=== PATIENT | female | born 1960 | race Caucasian/White ===

== ENCOUNTER → 2016-11-30 | Outpatient (CLI) | payer BC ==
[~2016-11-30] MED LIST: ASPEC325 PO; CALC-323 PO; FERR28TA; FLV1 PO; FRRG PO; HYDR-3419 PO; METH2.5T PO; PEDICHW34 PO; PRED-301 PO; PRED10TA PO; SENNTAB23; [UNRECOGNIZED DRUG - OTHER]
[2016-11-30 12:59] LABS: SYNOVIAL FLUID APPEARANCE CLOUDY; SYNOVIAL FLUID COLOR PALE YELLOW
== END | disposition home or self-care (01) ==
LOC: C.LABSPEC 11:13
PROVIDERS: ATTEND Orthopaedic Surgery Sports Medicine
DX: T84.84XA Pain due to internal orthopedic prosthetic devices, implants and grafts, initial encounter (principal); Z96.659 Presence of unspecified artificial knee joint; Y83.1 Surgical operation with implant of artificial internal device as the cause of abnormal reaction of the patient, or of later complication, without mention of misadventure at the time of the procedure

== ENCOUNTER 2016-12-25 11:03 | Inpatient (IN) | payer BC ==
[2016-11-30 10:05] VITALS: BMI 46.0
--- NOTE | 2016-11-30 10:41 | PAT Medication Instructions ---
Service Date November 30, 2016. Current Home Medication List Calcium Citrate-Vitamin D (Citracal Maximum), 2 TABS PO QAM Ferrous Gluconate (Iron), Unknown Dose Folic Acid (Folvite *), 1 MG PO QAM Hydrocodon/Acetaminophen 5MG/300MG (Vicodin (5MG/300MG)), 1 TAB PO Q4H PRN for Pain Methotrexate (Methotrexate), 6 TAB PO qfriday am Pediatric Multiple Vitamin W/ (Gummi Bear Multivitamin/M), 2 TAB PO QAM Prednisone (Prednisone), 2 TAB PO QAM [fosomax], Unknown Dose Medication Instructions For Your Scheduled Surgery - Check with surgeon/cook camp for instructions: Methotrexate (Methotrexate), 6 TAB PO qfriday am - Hold the following medications the morning of surgery: Pediatric Multiple Vitamin W/ (Gummi Bear Multivitamin/M), 2 TAB PO QAM Ferrous Gluconate (Iron), Unknown Dose Folic Acid (Folvite *), 1 MG PO QAM Calcium Citrate-Vitamin D (Citracal Maximum), 2 TABS PO QAM [fosomax], Unknown Dose - Take the following medications the morning of surgery with a sip of water: Prednisone (Prednisone), 2 TAB PO QAM Hydrocodon/Acetaminophen 5MG/300MG (Vicodin (5MG/300MG)), 1 TAB PO Q4H PRN for Pain (okay to take up to 4 hours prior to surgery if needed) - Take the following medications as scheduled the night before surgery: Hydrocodon/Acetaminophen 5MG/300MG (Vicodin (5MG/300MG)), 1 TAB PO Q4H PRN for Pain (if needed) If you have any questions please call us at [phone] (Neha Hassan PA-C) or [phone] or [phone]
--- NOTE | 2016-11-30 11:21 | DIAGNOSTIC IMAGING REPORT ---
CHEST PREADMISSION(PA/LAT) CLINICAL HISTORY: Preoperative chest COMPARISON STUDY: 03/21/2015 FINDINGS: The heart is at the upper limits of normal in size. There is no evidence of focal pulmonary consolidation. There is no evidence of failure. No pleural effusions are visualized.[ Indistinctness of the left cardiophrenic angle is likely secondary to a fat pad. IMPRESSION: No active disease in the chest. Electronically signed by: Toni Anaya M.D. 11/30/2016 11:19 AM Dictated Date/Time: 11/30/2016 11:19 AM
--- NOTE | 2016-11-30 11:43 | DIAGNOSTIC IMAGING REPORT ---
LATERAL CERVICAL SPINE RADIOGRAPHS IN THE NEUTRAL, FLEXION AND EXTENSION POSITIONS CLINICAL HISTORY: Preoperative evaluation. Rheumatoid arthritis. COMPARISON STUDY: Cervical spine radiographs January 25, 2015. FINDINGS: There is no evidence of instability at the atlantoaxial articulation during flexion or extension. Mild to moderate multilevel degenerative changes are most pronounced at C5-C6 and C6-C7. There is no fracture. Prevertebral soft tissues are unremarkable. Degenerative changes at the C1-C2 articulation are noted. IMPRESSION: 1. No radiographic evidence of atlantoaxial instability. 2. Moderate degenerative disc disease at C5-C6 and C6-C7. Electronically signed by: Pascual Alexandra M.D. 11/30/2016 11:42 AM Dictated Date/Time: 11/30/2016 11:39 AM
[2016-11-30 12:16] LABS: BASO % 0.4 %; BASO ABS # 0.03 K/uL (0-0.2); COMPLETE YES; EOS % 0.4 %; HEMATOCRIT 38.4 % (37-47); IG% 0.7 %; LYMPH % 12.8 %; LYMPH ABS # 0.86 K/uL (1.2-3.4); MEAN CELL VOLUME 98.7 fL (80-100); MEAN CORPUSCULAR HEMOGLOBIN 30.3 pg (25-34); MEAN CORPUSCULAR HGB CONC 30.7 g/dl (32-36); MEAN PLATELET VOLUME 9.2 fL (7.4-10.4); MONO % 5.8 %; NEUT % 79.9 %; PLATELET COUNT 354 K/uL (130-400); RED BLOOD COUNT 3.89 M/uL (4.2-5.4); WHITE BLOOD COUNT 6.74 K/uL (4.8-10.8)
[2016-11-30 12:31] LABS: C-REACTIVE PROTEIN 0.77 mg/dl (0-0.29); CREATININE 0.81 mg/dl (0.60-1.20); POTASSIUM 4.3 mmol/L (3.5-5.1)
[2016-11-30 12:35] LABS: INR 0.9 (0.9-1.1); PARTIAL THROMBOPLASTIN RATIO 0.9
--- NOTE | 2016-12-20 19:17 | HISTORY & PHYSICAL EXAMINATION ---
DATE OF ADMISSION: 12/25/2016 CHIEF COMPLAINT: Persistent right leg pain and discomfort status post knee replacement surgery. HISTORY OF PRESENT ILLNESS: The patient is a 56-year-old fairly severe rheumatoid patient who has a complex history related to her knees. She had her right knee replaced back in 09/12/2010. She did quite well for quite some time. She has had multiple falls over the years and did develop some problems with her left knee. It was thought that she had infection and she went and had a resection arthroplasty followed by antibiotic spacer placed on 02/19/2015 and then subsequently revised in April 2015. She has done well from this side. She has been doing pretty well since and then had several falls. She had one in January where she injured both of her knees some but she recovered for the most part and then had another fall in April. This seemed to really aggravate her right knee and she has had persistent increasing pain in the right knee since then. X-rays over the past several months have shown loosening of her tibial tray and she now presents for revision. We did an extensive workup for infection. Her sed rate was just minimally elevated at 24 and C-reactive protein at 0.77 consistent with rheumatoid disease. We aspirated her knee and her white cell count was less than 10 with 25% polys. We did send this off a for Synovasure testing which was negative. Culture from both Synovasure as well as from the hospital were no growth. Her femoral component does not look loose. She has been trying to continue to work but having more difficulty. This requires her to stand and she has difficulty mostly grover pain. PAST MEDICAL HISTORY: 1. Longstanding rheumatoid disease affecting multiple joints. 2. Obesity with a BMI of 46.5. PAST SURGICAL HISTORY: Include: 1. Gastric bypass surgery in 2008. 2. Bilateral knee replacements, right one done in September 2010 and left one done in October 2009. 3. Left knee revision with an infection I\T\D on 02/19/2015 and revision on April 2015. ALLERGIES: None. CURRENT MEDICINES: 1. Methotrexate 2.5 mg six pills a week. 2. Prednisone 5 mg twice a day. 3. Folic acid 1 mg a day. 4. Iron. 5. Hydrocodone. 6. Celexa. SOCIAL HISTORY: A 56-year-old female. She continues to work. She is . FAMILY HISTORY: Significant for heart disease and diabetes. REVIEW OF SYSTEMS: Negative for diabetes, neurologic problems, vascular problems, bleeding disorders. Denies any chest pain, no shortness of breath. No history of DVT or PEs. PHYSICAL EXAMINATION: GENERAL: Reveals a pleasant, middle-aged female. She looks to be in reasonably good health. She has got an obvious rheumatoid appearance. HEENT: Benign. NECK: Supple. Slightly limited motion but no deformity. LUNGS: Clear to auscultation. HEART: Regular rate and rhythm. ABDOMEN: Soft, nontender, nondistended. EXTREMITIES: Grossly neurovascularly intact except as follows. Examination of the right knee reveals the patient walks with a slight bit of limp. She has got minimal knee effusion. Incision is well healed with a range of motion 0-120. No gross instability. She is tender around the grover. Examination of left knee reveals well-healed incision. Range of motion is 0 to about 120. No signs of residual infection. X-RAYS: X-rays of the right knee reviewed. Shows a cemented posterior stabilized total knee arthroplasty. She has clear loosening of her tibial tray with tilting and a varus. This has progressed over the past several months. She has debonding of the implant of implant from the cement mantle. Femoral component still looks to be well fixed. ASSESSMENT: A 56-year-old female who is status post bilateral knee replacements, right one done in September 2010 with a tibial loosening probably related to multiple falls as well as her poor bone quality. I do not think there are any signs of infection. We did an extensive infectious workup which is negative. PLAN: We are going to take her to the operating room and revise her knee. I think we just have to revise the tibial tray. We may need to revise the whole thing. If we get in there and it is infected, we will place knee antibiotic spacer, but I think that unlikely. The risks and benefits of total knee revision were explained to the patient including but not limited to DVT, PE, , infection, neurological injury, vascular injury, bleeding problem, pain, limited range of motion, stiffness, failure to relieve her symptoms, incomplete relief of symptoms, need for further surgery in the future, fracture, leg length inequality, nerve palsy, need for revision surgery and infection. The patient understands and desires to proceed. Informed consent was obtained. She will likely need stress dose steroids due to chronic prednisone use. [facility]
[~2016-12-25] VITALS: Ht 162.6 cm; Wt 123.0 kg
[2016-12-25] VITALS (7 sets, daily range): BP systolic 125–145; BP diastolic 75–86; PULSE 63–83; TEMP 36.4–36.8; O2SAT 93–98; Ht 162.6 cm; Wt 123.0 kg
[~2016-12-25 11:03] MED LIST changes: +ACETAMINOPHEN 500 MG TAB PO SCH; -ASPEC325 PO; +BUPIVACAINE 0.25% 30 ML VIAL ONE; +BUPIVACAINE 0.5 % 5 MG/1 ML PF 10ML VIAL ONE; +BUPIVACAINE LIPOSOME 266 MG, BUPIVACAINE/EPINEPHRINE INJ 50 ML, SODIUM CHLORIDE 0.9% PF... INFIL SCH; +CEFAZOLIN 3000 MG/65 ML D5W 65 ML IV SCH; +FAMOTIDINE 20 MG TAB PO SCH; -FRRG PO; +GABAPENTIN 300 MG CAP PO SCH; +LACTATED RINGER'S 1000ML 1,000 ML IV SCH; +LACTATED RINGER'S 1000ML IV SCH; +LACTATED RINGER'S 500 ML IV SCH; +METOCLOPRAMIDE HCL 10 MG TAB PO SCH; -PRED10TA PO; +SCOPOLAMINE 1.5 MG TDSY TD SCH; -SENNTAB23; +TRANEXAMIC ACID INJ 1,000 MG in SODIUM CHLORIDE 0.9% 100ML 100 ML IV SCH
--- NOTE | 2016-12-25 11:39 | History & Physical Bridge Note ---
H&P Re-Evaluation Bridge Note: I have examined the patient, reviewed the History & Physical and in the interval since the performance of the History & Physical I have noted the following changes of clinical significance: No changes noted
[2016-12-25] MEDS ORDERED: MIDAZOLAM HCL 1 MG/ML 2ML VIAL ONE ×2 (13:03)
[2016-12-25] MEDS ORDERED: FENTANYL CITRATE INJ 50 MCG/1 ML 2 ML VIAL ONE ×2 (13:03→16:11)
[2016-12-25] MEDS ORDERED: PROPOFOL IV EMULSION 10 MG/ML 20 ML VIAL IV ONE ×2 (13:03→14:38)
[2016-12-25] MEDS ORDERED: ONDANSETRON INJ 2 MG/ML 2 ML VIAL ONE (13:03)
[2016-12-25] MEDS ORDERED: BUPIVACAINE/EPINEPHRINE 0.25% 1:200,000 30 ML VIAL ONE (13:12)
[2016-12-25] MEDS ORDERED: SODIUM CHLORIDE 0.9% PF 50 ML VIAL ONE (13:12)
[2016-12-25] MEDS ORDERED: BACITRACIN 50000 UNIT VIAL ONE (13:13)
[2016-12-25] MEDS ORDERED: BUPIVACAINE LIPOSOME 1/3% 266 MG/20 ML VIAL INFIL ONE (13:13)
[2016-12-25] MEDS ORDERED: VANCOMYCIN HCL 1000MG/20ML VIAL ONE (13:13)
[2016-12-25] MEDS ORDERED: ONDANSETRON INJ 2 MG/ML 2 ML VIAL IV PRN ×2 (14:15→16:30)
[2016-12-25] MEDS ORDERED: SODIUM CHLORIDE 0.9% INJ 10 ML VIAL ONE (14:15)
[2016-12-25] MEDS ORDERED: KETAMINE HCL INJ 50 MG/ML 10 ML VIAL ONE (14:15)
[2016-12-25] MEDS ORDERED: NALOXONE HCL 0.4 MG/1 ML VIAL/CARP IV PRN (14:15)
[2016-12-25] MEDS ORDERED: PROMETHAZINE HCL INJ 12.5 MG in SODIUM CHLORIDE 0.9% 50ML 50 ML IV PRN (14:15)
[2016-12-25] MEDS ORDERED: FLUMAZENIL 0.1 MG/1 ML 10 ML VIAL IV PRN (14:15)
[2016-12-25] MEDS ORDERED: HYDROCORTISONE SOD SUCCINATE 100 MG/2 ML VIAL ONE (14:15)
[2016-12-25] MEDS ORDERED: ATROPINE SULFATE 0.1 MG/ML 5ML SYR IV PRN (14:15)
[2016-12-25] MEDS ORDERED: EpHEDrine SULFATE INJ 50 MG/ML AMP IV PRN (14:15)
[2016-12-25] MEDS ORDERED: CISATRACURIUM BESYLATE IV SOLN 2 MG/ML 10 ML VIAL ONE (15:01)
[2016-12-25] MEDS ORDERED: NEOSTIGMINE METHYLSULFATE 5 MG/5 ML SYR ONE (15:57)
[2016-12-25] MEDS ORDERED: GLYCOPYRROLATE INJ 0.2 MG/ML VIAL ONE (15:57)
[2016-12-25] MEDS ORDERED: ESMOLOL HCL 10 MG/ML 10 ML VIAL ONE (16:21)
--- NOTE | 2016-12-25 16:29 | [facility] Post Operative Brief Note ---
Immediate Operative Summary Operative Date December 25, 2016. Pre-Operative Diagnosis Adseptic Tibial Loosening Right TKR Post-Operative Diagnosis Same Procedure(s) Performed Right Total Knee Revision - tibial component Surgeon Dr. Ott In Classroom Tutor Surgeon(s) Yariel Quiros Estimated Blood Loss 100ML Findings Loose Tibia Fluids (cc crystalloids) 1600 cc Specimens Routine culture, anaerobic, gram stain - right knee fluid Frozen section-# of WBC'S per high powered field -Right knee synovium A. explanted hardware right knee Drains None Anesthesia Spinal + General Complication(s) None Disposition Recovery Room / PACU
[2016-12-25] MEDS ORDERED: BISACODYL 10 MG SUPP PR PRN (16:30)
[2016-12-25] MEDS ORDERED: MAGNESIUM HYDROXIDE SUSP 30 ML UDC PO PRN (16:30)
[2016-12-25] MEDS ORDERED: ZOLPIDEM TARTRATE 5 MG TAB PO PRN (16:30)
[2016-12-25] MEDS ORDERED: SILVER SULFADIAZINE 1% CR 50 GM JAR EXT PRN (16:30)
[2016-12-25] MEDS ORDERED: MoRPHine SULFATE 2 MG/ML CARP IV PRN (16:30)
[2016-12-25] MEDS ORDERED: ALUMINUM/MAGNESIUM/SIMETH (MAALOX MAX) 30 ML UDC PO PRN (16:30)
[2016-12-25] MEDS ORDERED: METOCLOPRAMIDE HCL INJ 5 MG/ML 2 ML VIAL IV PRN (16:30)
[2016-12-25] MEDS ORDERED: HYDROmorphone INJ 1 MG/ML SYR ONE (16:40)
[2016-12-25] MEDS ORDERED: HYDROmorphone INJ 2 MG/ML SYR/VIAL IV PRN (16:45)
--- NOTE | 2016-12-25 17:11 | Anesthesiology Progress Note ---
Anesthesia Post Op Note Date & Time December 25, 2016 at 17:11 Vital Signs Pain Intensity: 0 Vital Signs Past 12 Hours Date Time Temp Pulse Resp B/P Pulse Ox O2 Delivery O2 Flow Rate FiO2 12/25/16 17:00 60 18 131/72 95 Nasal Cannula 2 12/25/16 16:50 61 16 126/71 97 Mask 10 12/25/16 16:40 71 19 133/71 98 Mask 10 12/25/16 16:31 36.4 81 18 140/80 98 Mask 10 12/25/16 11:34 36.8 76 17 143/82 98 Room Air Notes Mental Status: alert / awake / arousable, participated in evaluation Pt Amnestic to Procedure: Yes Nausea / Vomiting: adequately controlled Pain: adequately controlled Airway Patency, RR, SpO2: stable & adequate BP & HR: stable & adequate Hydration State: stable & adequate Neuraxial Anesthesia: was administered, sensory block is resolving Anesthetic Complications: no major complications apparent
[2016-12-25] MEDS: CHECK SCOPOLAMINE PATCH PLACEMENT SCH (17:30)
--- NOTE | 2016-12-25 17:52 | DIAGNOSTIC IMAGING REPORT ---
RIGHT KNEE 1 OR 2 VIEWS ROUTINE CLINICAL HISTORY: Right knee arthroplasty. COMPARISON: Right knee radiographs November 30, 2016. FINDINGS: Alignment of the revision right knee arthroplasty is anatomic. There is no periprosthetic fracture or unexpected radiopaque foreign body. Skin sukumar are present. IMPRESSION: Expected findings following revision right knee arthroplasty. Electronically signed by: Pascual Alexandra M.D. 12/25/2016 5:51 PM Dictated Date/Time: 12/25/2016 5:50 PM
[2016-12-25] MEDS: D5W AND 1/2NSS + 20MEQ KCL 1,000 ML IV SCH (18:56)
[2016-12-25] MEDS: KETOROLAC TROMETHAMINE 30 MG/ML VIAL IV. SCH (19:26)
--- NOTE | 2016-12-25 20:17 | OPERATIVE REPORT ---
DATE OF OPERATION: 12/25/2016 SURGEON: Dameon Ott MD. MANAGER COMBINATION: WOOD Hernandez. 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 POSTOPERATIVE DIAGNOSIS: Same. PROCEDURE PERFORMED: 1. Right total knee revision of the tibial component and polyethylene bearing. COMPLICATIONS: None. ESTIMATED BLOOD LOSS: 100 mL FLUID REPLACEMENT: 1600 mL crystalloid fluid replacement. TOURNIQUET TIME: 94 minutes at 300 mmHg. ANESTHESIA: Spinal, followed by general anesthesia. SPECIMENS: Fluid sent for stat gram stain, aerobic and anaerobic culture. Gram stain showed rare WBCs and no organisms. Synovial tissue sent for frozen section which revealed two polys per high-power field. OPERATIVE INDICATIONS: The patient is a 56-year-old female status post right total knee replacement 5-6 years ago. She had a left one done shortly thereafter. She did well for quite some time and then developed loosening of the knee on the left side. She has had multiple falls almost on a weekly basis for unclear reasons. She underwent extensive workup and treatment on the left side including antibiotic spacer placement and revision and has done well. She had several falls several months ago and then developed the right grover pain. X-rays suggested loosening. We followed her over the past 3 months and it showed progressive loosening of the tibial component. She had an extensive infectious workup. Sed rate and C-reactive protein were just minimally elevated, likely due to rheumatoid disease. We send the fluid off which showed no growth on cultures and a fairly benign appearing cell count. She also had Synovasure testing which was negative. In light of this, we elected to proceed with revision. OPERATIVE FINDINGS: Operative findings revealed of moderate synovitis. She had an obviously loose and debonded tibial tray. The femoral component looked to be well fixed as well as the patella component. The knee effusion was just primarily serous. There is no sign of infection. OPERATIVE IMPLANTS: Operative implants consisted of: 1. A Biomet Vanguard 360 size 67 tibial tray with a 2.5 mm offset and a 14 x 80 mm stem. 2. An 18 mm posterior stabilized polyethylene insert. OPERATIVE PROCEDURE: The patient was taken to the operating room, identified and placed on the operating table in the supine position. All contact areas were appropriately padded. IV antibiotics were provided by anesthesia team. A spinal anesthetic was implemented in the holding room. A Dorado catheter was placed in sterile fashion. The right thigh tourniquet was then placed and the right lower extremity was then prepped and draped in the usual sterile fashion. The right leg was elevated and exsanguinated with Esmarch and tourniquet was placed at 300 mmHg. An anterior approach to the right knee was then performed using the previous longitudinal incision. Sharp dissection was carried out through the subcutaneous tissues down to the level of the extensor mechanism. The patient was really kind of still struggling with feelings of sensation, so a general anesthetic was implemented. A medial parapatellar arthrotomy incision was made. The fluid was sent off for stat gram stain, and aerobic and anaerobic culture. This shows few WBCs, and no organisms. An extensive synovectomy of the suprapatellar pouch, medial gutter, lateral gutter and posterior compartments were performed. The synovium was sent off for a frozen section which revealed two polys per high-power field. In light of this, we proceeded with revision. Once the synovectomy was complete, the knee was flexed. The patella was subluxated laterally. I examined the femoral component, it looked to be very well fixed. I then subluxated the knee. The polyethylene locking mechanism was removed and the polyethylene was removed. I then took an osteotome and easily removed the tibial tray. It had debonded from the cement mantle. The cement was still in place, although there was quite a bit of osteolysis around it. I then took a drill as well as a chisel and removed the cement. I was able to remove the cement plug after reasonable amount of work without any significant damage to the tibia. I then proceeded with revision. The tibial tunnel was cleaned of all debris. I then began reaming. We reamed up to a size 14. Intramedullary cutting guide was placed and the proximal tibial cut was made to remove about 2 mm of bone from the lateral side. I then prepared the tibia for a 2.5 mm offset stem in the 67 tray, which fit most appropriately in order to get a tibial rotation. We then reamed for this implant as well as use the small cruciate wing to provide some rotational stability. We trialed the knee and the 18 mm insert fit most appropriately. The 16 was just a little bit loose. The patella tracked very nicely and we elected to use these implants. All trial components were removed. I spent quite a bit of time cleaning the tibia and get rid of all fibrous tissue down the bone. We irrigated the wound extensively. A double batch of Palacos G cement was mixed and I added an additional gram of vancomycin. We then placed the tibial component. I cemented the metaphyseal surface, but did not cement the stem. All extraneous cement was removed. The knee was brought out into full extension until cement hardened. A final cement check was then performed. The pericapsular tissues were injected with 100 mL of a combination of 20 mL of Exparel, 30 mL of normal saline, 50 mL of 0.25% Marcaine with epinephrine. The tourniquet was then let down for a tourniquet time of 94 minutes. Hemostasis was assured with use of electrocautery. The wound was once again irrigated. The extensor mechanism was then closed with a combination of #1 PDS suture and #1 Vicryl suture in a [id number] fashion. Extensor mechanism was then checked and found to be intact. The subcutaneous tissues were then closed with 2-0 Dexon suture in a buried interrupted fashion. Skin was closed with skin sukumar. The leg was then cleaned and dried and a sterile dressing composed of Xeroform, 4 x 4's, sterile cast padding, ABD pad and Dani bandage were applied. The patient was then brought out of general anesthesia and transferred to the recovery room in stable condition. The patient tolerated the procedure well with no complications. All needle and sponge counts were correct at the end of the operation. I attest to the content of the Intraoperative Record and any orders documented therein. Any exceptions are noted below. JERRY
[2016-12-25] MEDS: FERROUS GLUCONATE 324 MG TAB PO SCH (20:32)
[2016-12-25] MEDS: ASPIRIN 325 MG ECTAB PO SCH (20:32)
[2016-12-25] MEDS: DOCUSATE SODIUM 100 MG CAP PO SCH (20:33)
[2016-12-25] MEDS: SENNA 8.6 MG TAB PO SCH (20:33)
[2016-12-25] MEDS: TAPENTADOL ER 50 MG TABCR PO SCH (20:41)
[2016-12-25] MEDS: HYDROCORTISONE IV 100 MG in SYRINGE 0 ML IV SCH (21:22)
[2016-12-25] MEDS: ACETAMINOPHEN 500 MG TAB PO SCH (21:23)
[2016-12-25] MEDS: CEFAZOLIN IV 2,000 MG in DEXTROSE 5% 50ML 50 ML IV SCH (21:23)
[2016-12-25] MEDS ORDERED: TRANEXAMIC ACID INJ 1,000 MG in SODIUM CHLORIDE 0.9% 100ML 100 ML IV SCH (22:30)
[2016-12-26] MEDS: CHECK SCOPOLAMINE PATCH PLACEMENT SCH ×3 (00:06→15:53)
[2016-12-26] MEDS ORDERED: NURSING DECISION MEDICATION ORDER SCH (02:00)
[2016-12-26] MEDS: KETOROLAC TROMETHAMINE 30 MG/ML VIAL IV. SCH ×4 (02:07→20:40)
[2016-12-26] MEDS: D5W AND 1/2NSS + 20MEQ KCL 1,000 ML IV SCH ×2 (02:07→10:50)
[2016-12-26] MEDS ORDERED: MICONAZOLE NITRATE POWDER 43 GM EXT PRN (03:15)
[2016-12-26 03:16] VITALS: BP 122/77; PULSE 58; TEMP 36.5; O2SAT 95
[2016-12-26] MEDS: CEFAZOLIN IV 2,000 MG in DEXTROSE 5% 50ML 50 ML IV SCH (05:43)
[2016-12-26] MEDS: HYDROCORTISONE IV 100 MG in SYRINGE 0 ML IV SCH ×2 (05:43→14:06)
[2016-12-26] MEDS: ACETAMINOPHEN 500 MG TAB PO SCH ×3 (05:43→22:21)
[2016-12-26 05:56] LABS: HEMATOCRIT 33.5 % (37-47); MEAN CELL VOLUME 98.8 fL (80-100); MEAN CORPUSCULAR HEMOGLOBIN 31.6 pg (25-34); MEAN CORPUSCULAR HGB CONC 31.9 g/dl (32-36); MEAN PLATELET VOLUME 8.8 fL (7.4-10.4); PLATELET COUNT 222 K/uL (130-400); RED BLOOD COUNT 3.39 M/uL (4.2-5.4); WHITE BLOOD COUNT 9.45 K/uL (4.8-10.8)
[2016-12-26 06:28] LABS: BUN/CREATININE RATIO 16.8 (10-20); CREATININE 0.76 mg/dl (0.60-1.20); POTASSIUM 4.6 mmol/L (3.5-5.1)
[2016-12-26] MEDS ORDERED: HYDR-3419 PO (07:36)
[2016-12-26] MEDS ORDERED: ASPEC325 PO (07:36)
--- NOTE | 2016-12-26 07:37 | Discharge Instructions ---
Discharge Instructions Date of Service December 26, 2016. Admission Reason for Admission: Painful Right Total Knee Replacement Discharge Discharge Diagnosis / Problem: Right TKR Revision Discharge Goals Goal(s): Decrease discomfort, Improve function, Increase independence, Improve disease control, Therapeutic intervention Activity Recommendations Activity Limitations: per Instructions/Follow-up section Weightbearing Status: Right weightbearing . Instructions / Follow-Up Instructions / Follow-Up ACTIVITY RECOMMENDATIONS: Physical Therapy: * You will go to physical therapy three times each week for four to six weeks after your surgery in order to regain your knee range of motion and to retrain your knee to work properly. * It is just as important to make sure you are getting your knee perfectly straight as it is to regain your knee bend. * Taking a pain pill an hour before therapy can help you have a more productive and comfortable therapy session. Home Exercise: * You were shown a series of exercises (heel props, heel slides, etc.) in the hospital. Do these exercises three to four times each day including the exercises you were shown in physical therapy. Walking: * Get up and walk several times each day. For the first four weeks, try not to stand or walk for more than one hour at a time. If you do stand or walk for more than one hour, you will not hurt anything, but your knee and leg will likely swell. * As you feel comfortable, you may change from the walker or crutches to a cane and then to independent walking. MEDICATIONS: New Medicine: * You will likely be taking one or more of these medications: 1. Vicoden - A quick and shorter-acting pain medication. Take one to two tablets every four to six hours to lessen your pain. 2. Aspirin - Thins your blood to lessen the chance of forming a blood clot. * The most common side effects of pain medicine and iron are nausea and constipation. If nausea or constipation is too much of a problem or if you have any questions about your new medicines or doses, call [facility] at . We will try to help you manage these issues. VERY IMPORTANT TO READ AND REVIEW" Pain: * The immediate post-operative period after knee replacement surgery is often quite painful. * You are given a prescription for pain medicine. You should take it, as directed, when you need it, especially before physical therapy and before going to bed. Pain that interferes with sleep is very common and can last several months. * You will likely need pain medicine for the first four to six weeks. It will not stop all of the pain. The pain will lessen and as you feel better, you may change to milder pain medicine such as Tylenol. * The most common side effects of pain medicine are nausea and constipation, so don't take more than you need. SPECIAL CARE INSTRUCTIONS: TEDs/Elastic Stockings: * The white elastic stockings help limit swelling and prevent blood clots from forming in your legs. The more you wear them, the more they work. * Wear them for six weeks after knee replacement surgery and four weeks after partial knee replacement. Prevention of Infection: * Take antibiotics one hour before any dental cleaning, dental work, urological procedure, gastrointestinal procedure or any invasive surgery in order to prevent your new joint from getting infected. * You may get the antibiotics from the doctor performing the procedure or you may call our office at before and we will call in a prescription to the pharmacy of your choice. Things to Watch For: * Drainage from the incision site that occurs more than one week after your surgery. * Severely increased knee/leg pain or swelling. * Increased redness at the incision site. * Fever above 102 degrees Fahrenheit. * Unusual chest pain or shortness of breath. * Unusual pain or burning with urination. Call [facility] at with any of the above problems or if you have any questions about your medicines or recovery. FOLLOW UP VISIT: Make an appointment to see your doctor for approximately two weeks after surgery for a progress check and staple removal by calling the office at . Current Hospital Diet Patient's current hospital diet: Regular Diet Discharge Diet Recommended Diet: Regular Diet Procedures Procedures Performed: Right Total Knee Revision - tibial component Pending Studies Studies pending at discharge: no Medical Emergencies . Who to Call and When: Medical Emergencies: If at any time you feel your situation is an emergency, please call [phone] immediately. . Non-Emergent Contact Non-Emergency issues call your: Surgeon . "Provider Documentation" section prepared by Dameon Ott. . VTE Core Measure Inpt VTE Proph given/why not?: Other Anticoagulation, T.E.D. Stockings, SCD's
[2016-12-26] MEDS: PANTOprazole SOD 40 MG TAB PO SCH (07:56)
[2016-12-26] MEDS: CALCIUM CITRATE 950 MG TAB PO SCH (07:56)
[2016-12-26] MEDS: ASPIRIN 325 MG ECTAB PO SCH ×2 (07:56→20:40)
[2016-12-26] MEDS: DOCUSATE SODIUM 100 MG CAP PO SCH ×2 (07:56→20:40)
[2016-12-26] MEDS: MULTIVITAMIN TAB PO SCH (07:56)
[2016-12-26] MEDS: FERROUS GLUCONATE 324 MG TAB PO SCH ×3 (07:57→18:52)
[2016-12-26] MEDS: TAPENTADOL ER 50 MG TABCR PO SCH ×2 (08:01→20:40)
[2016-12-26 08:02] VITALS: BP 139/85; PULSE 47; TEMP 36.8; O2SAT 96
--- NOTE | 2016-12-26 08:19 | PROGRESS NOTE ---
DATE: 12/26/2016 SUBJECTIVE: A 56-year-old female postop day #1 from a right total knee tibial tray revision. She is doing well. Pain is controlled. Denies any chest pain or shortness of breath. Not feeling dizzy or lightheaded. OBJECTIVE: VITAL SIGNS: Temperature 36.5. Vital signs stable. GENERAL: Physical examination reveals a pleasant, middle-aged female. She is sitting up in bed and looks completely comfortable. LUNGS: Clear to auscultation. HEART: Regular rate and rhythm. ABDOMEN: Soft, nontender, and nondistended. EXTREMITIES: Grossly neurovascularly intact except as follows: Examination of the right leg reveals the dressing to be clean, dry and intact. Leg is well aligned. She can dorsiflex and plantarflex her foot appropriately. She is neurologically intact. LABORATORY DATA: Hemoglobin 10.7. Hematocrit 33.5. Electrolytes are stable. ASSESSMENT: A 56-year-old female with pretty severe rheumatoid disease, postop day #1 from a tibial tray revision. She is doing pretty well. Pain is controlled. She is neurologically intact. PLAN: 1. DVT prophylaxis including thigh-high TEDs, SCDs, and aspirin twice a day. 2. PT/OT. Weightbearing as tolerated. Right total knee protocol. 3. Pain control, doing well with current pain regimen. 4. Chronic steroid use. We did give her stress dose steroids perioperatively. 5. Disposition: She is planning to be discharged to home with likely some home health.
[2016-12-26 08:25] VITALS: PULSE 64
[2016-12-26] MEDS ORDERED: [UNRECOGNIZED DRUG - OTHER] PO SCH (09:00)
[2016-12-26] MEDS: OXYCODONE HCL IR 5 MG TAB (IMMEDIATE RELEASE) PO PRN (12:10)
[2016-12-26 12:35] VITALS: BP_SYST 142; BP_SYST 144; BP_DIAS 85; BP_DIAS 95; PULSE 59; TEMP 37; O2SAT 96
[2016-12-26 15:04] VITALS: BP 125/84; PULSE 59; TEMP 37; O2SAT 96
[2016-12-26] MEDS: SENNA 8.6 MG TAB PO SCH (20:40)
[2016-12-27 00:33] VITALS: BP 109/64; PULSE 68; TEMP 36.5; O2SAT 96
[2016-12-27] MEDS: KETOROLAC TROMETHAMINE 30 MG/ML VIAL IV. SCH ×2 (02:04→08:01)
[2016-12-27] MEDS: ACETAMINOPHEN 500 MG TAB PO SCH (05:50)
[2016-12-27 06:50] VITALS: BP 135/83; PULSE 60; TEMP 36.8; O2SAT 99
[2016-12-27] MEDS: CHECK SCOPOLAMINE PATCH PLACEMENT SCH ×2 (08:00)
[2016-12-27] MEDS: TAPENTADOL ER 50 MG TABCR PO SCH (08:00)
[2016-12-27] MEDS: MULTIVITAMIN TAB PO SCH (08:01)
[2016-12-27] MEDS: ASPIRIN 325 MG ECTAB PO SCH (08:01)
[2016-12-27] MEDS: CALCIUM CITRATE 950 MG TAB PO SCH (08:01)
[2016-12-27] MEDS: PANTOprazole SOD 40 MG TAB PO SCH (08:01)
[2016-12-27] MEDS: FERROUS GLUCONATE 324 MG TAB PO SCH (08:01)
[2016-12-27] MEDS: DOCUSATE SODIUM 100 MG CAP PO SCH (08:01)
--- NOTE | 2016-12-27 08:42 | PROGRESS NOTE ---
DATE: 12/27/2016 SUBJECTIVE: A 56-year-old female, postop day #2 from a right total knee revision of the tibial tray. She is doing well. The pain is controlled. The therapy went well. She denies any chest pain or shortness of breath. Not feeling dizzy or lightheaded. OBJECTIVE: VITAL SIGNS: Temperature is 36.8. Vital signs are stable. GENERAL: Reveals a healthy and pleasant middle-aged female. She is sitting up in bed, eating breakfast. LUNGS: Clear to auscultation. HEART: Regular rate and rhythm. ABDOMEN: Soft, nontender and nondistended. EXTREMITIES: Grossly neurovascularly intact except as follows: Examination of the right leg reveals the dressing to be clean, dry and intact. She can dorsiflex and plantarflex her foot appropriately. She is neurologically intact. Culture results are; no growth. 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 She is doing well. The pain is controlled. PLAN: 1. DVT prophylaxis including thigh-high TEDs, SCDs and aspirin twice a day. 2. PT/OT. Weightbearing as tolerated. Right total knee protocol. 3. Pain control, doing pretty well with current pain regimen. 4. Disposition: We plan to discharge to home and she is going to do outpatient therapy. JERRY
[2016-12-27 09:09] VITALS: BP 135/83; PULSE 60; TEMP 36.8; O2SAT 99
[2016-12-27] MEDS: OXYCODONE HCL IR 5 MG TAB (IMMEDIATE RELEASE) PO PRN (09:53)
== END 2016-12-27 10:07 | disposition home or self-care (01) | DRG 467 ==
LOC: ENRESERVDT → ENRESERVTM → C.ACU 11:03 → C.MSW 12:25
PROVIDERS: ADMIT Orthopaedic Surgery Sports Medicine; ATTEND Orthopaedic Surgery Sports Medicine
PROC: 0SRV0J9 Replacement of Right Knee Joint, Tibial Surface with Synthetic Substitute, Cemented, Open Approach (ICD-10-PCS; principal; 2016-12-25 13:00)
PROC: 0SPV0JZ Removal of Synthetic Substitute from Right Knee Joint, Tibial Surface, Open Approach (ICD-10-PCS; principal; 2016-12-25 13:00)
PROC: 0SUV09Z Supplement Right Knee Joint, Tibial Surface with Liner, Open Approach (ICD-10-PCS; principal; 2016-12-25 13:00)
PROC: 0SPC09Z Removal of Liner from Right Knee Joint, Open Approach (ICD-10-PCS; principal; 2016-12-25 13:00)
DX: T84.032A Mechanical loosening of internal right knee prosthetic joint, initial encounter (principal); Z68.42 Body mass index [BMI] 45.0-49.9, adult; Y79.2 Prosthetic and other implants, materials and accessory orthopedic devices associated with adverse incidents; M65.9 Synovitis and tenosynovitis, unspecified; M25.461 Effusion, right knee; M06.9 Rheumatoid arthritis, unspecified; M19.90 Unspecified osteoarthritis, unspecified site; G62.9 Polyneuropathy, unspecified; E66.01 Morbid (severe) obesity due to excess calories; Z87.891 Personal history of nicotine dependence; Z96.653 Presence of artificial knee joint, bilateral; Z98.84 Bariatric surgery status; Z92.84 Personal history of unintended awareness under general anesthesia; Z91.81 History of falling; Z79.52 Long term (current) use of systemic steroids; Z79.83 Long term (current) use of bisphosphonates; Z79.891 Long term (current) use of opiate analgesic; Z79.899 Other long term (current) drug therapy